=== PATIENT | male | born 1945 | race Caucasian/White ===

== ENCOUNTER 2016-05-23 05:49 | Day surgery (SDC) | payer MEDICARE, OTHER ==
[2016-05-22 10:46] LABS: BASOPHILS 0.2 % (0.0-2.0); EOSINOPHILS 0.9 % (0-7); HEMATOCRIT 33.6 % (42.0-54.0); HEMOGLOBIN 10.8 g/dL (13.5-17.5); IMMATURE GRANULOCYTES 0.6 % (0-5); LYMPHOCYTES 20.4 % (15-50); MCH 28.3 pg (26.0-34.0); MCHC 32.1 g/dL (31.0-37.0); MCV 88.2 fL (80.0-100.0); MONOCYTES 6.8 % (2-11); NEUTROPHILS 71.1 % (40-80); PLATELET COUNT 177 10x3/uL (130-400); RBC 3.81 10x6/uL (4.20-6.10); WBC 6.6 10x3/uL (4.8-10.8)
[2016-05-22 11:18] LABS: ANION GAP 12.8 mmol/L (8-16); APTT 28.2 SECONDS (22.8-39.4); CALCIUM 8.7 mg/dL (8.5-10.1); CARBON DIOXIDE 26.3 mmol/L (21.0-32.0); CREATININE - SERUM 1.5 mg/dL (0.6-1.3); INR 0.97 (0.85-1.17); POTASSIUM - SERUM 5.1 mmol/L (3.5-5.1); PROTIME 12.7 SECONDS (11.6-15.0)
[~2016-05-23] VITALS: Ht 180.3 cm; Wt 99.8 kg
[2016-05-23 05:48] VITALS: BP 101/56; Ht 180.3 cm; Wt 99.8 kg
[~2016-05-23 05:49] MED LIST: ECOTRIN325 MG PO; FLOMAX0.4 MG PO; HYDROCODONE-APA1 TAB PO; HYZAAR 100-25 T1 TAB PO; LOPRESSOR25 MG PO; PLAQUENIL200 MG PO; PREDNISONE5 MG PO; [UNRECOGNIZED DRUG - OTHER] PO
--- NOTE | 2016-05-23 08:41 | NUR ---
0835-RECEIVED PT FROM PACU AWAKE AND ALERT VSS NO DISTRESS NOTED. PT LEFT FOOT BANDAGE CDI WITHOUT ANY DRAINAGE NOTED. FOOT IS NUMB BRISK CAP REFILL. AT BEDSIDE WILL CONTINUE TO MONITOR
--- NOTE | 2016-05-23 09:50 | NUR ---
0945--PT VOIDS WITHOUT DIFFICULTY, IV DC'D. PT UP TO DRESS AT THIS TIME. HOLLY GONZALEZ
--- NOTE | 2016-05-23 10:03 | NUR ---
0955--DISCHARGE INSTRUCTIONS GIVEN, PT VERBALIZES UNDERSTANDING. PT OFF UNIT VIA BERTO. HOLLY GONZALEZ
--- NOTE | 2016-05-30 09:50 | OP ---
PATIENT NAME: ONDINA THORPE JR MEDICAL RECORD: [id number] :46 LOCATION:[facility] ADMISSION DATE: SURGEON: CIRA BRAY DPM DATE OF OPERATION: 05/23/2016 PREOPERATIVE DIAGNOSIS: Arthritis, left first metatarsophalangeal joint. 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 PROCEDURE: First MPJ fusion, left foot. ANESTHESIA: Local with IV sedation utilizing lidocaine and Marcaine plain, approximately 18 cc total 1:1 mix of lidocaine and Marcaine plain around the first ray. HEMOSTASIS: Left thigh tourniquet at 350 mmHg. PREOPERATIVE DETAILS: The patient was taken to the OR and placed on the operating table in supine position. This was followed by induction of general anesthesia and infiltration of local anesthetic. The left extremity was then prepped and draped in usual aseptic technique followed by examination of extremity and inflation of tourniquet. A 15 blade was used to create an incision on the dorsal aspect of the first ray extending to the base of proximal phalanx of the hallux. The incision was deepened down through subcutaneous tissue being sure to avoid all vital structures. A linear capsular incision was made and the head of the first metatarsal and base of proximal phalanx was then delivered. A K-wire was driven in the first metatarsal head and a cone reamer was used to remove the cartilaginous surface, rongeur was used to remove all ectopic bone and residual ____. A K-wire was then removed. The K-wire was placed in the proximal phalanx and the cone reamer was used to remove the cartilaginous surface of the proximal phalanx. The K-wire was removed. At this time, a 5-hole plate, 1 hole being across the fusion site was placed over the first MPJ. Following plate and screw placement, there was noted to be excellent rigid internal fixation as well as excellent alignment of the first ray and hallux. The wound was flushed. The capsule was repaired with 2-0 Vicryl. The subcutaneous tissue with 4-0 Rapide and the skin was closed with 4-0 Rapide in a subcuticular technique followed by Dermabond, Adaptic, 4 x 4 and Conform were used to dress the wound followed by application of a modified Borges compression dressing. Tourniquet was deflated. POSTOPERATIVE DETAILS: The patient tolerated the procedure well and left the OR with vital signs stable and vascular status at preoperative levels. The patient was transported to recovery per anesthesia in stable condition. TRANSINT:[id number] Voice Confirmation ID: [id number] DOCUMENT ID: [id number] OPERATIVE REPORT [id number] ONDINA THORPE JR, MCKAY DPM at 0950 CC: [id number] DICTATION DATE: 05/23/16 0757 QUALITY CONTROL CHEMIST: 05/23/16 0846 [facility] 05/23/16 [id number] [place] [address]
== END 2016-05-23 09:55 | disposition home or self-care (01) ==
LOC: D.OPS 05:49 → D.PAN 07:30 → D.OPS 07:30
PROVIDERS: Anesthesiology
DX: M13.872 Other specified arthritis, left ankle and foot (principal); M1A.0721 Idiopathic chronic gout, left ankle and foot, with tophus (tophi)

== ENCOUNTER 2016-10-16 06:50 | Day surgery (SDC) | payer MEDICARE, OTHER ==
[~2016-10-16] VITALS: Ht 180.3 cm; Wt 99.8 kg
--- NOTE | ~2016-10-16 | OP ---
PATIENT NAME: ONDINA THORPE JR MEDICAL RECORD: [id number] :47 LOCATION:D[facility] ADMISSION DATE: SURGEON: KAILA DONAHUE MD DATE OF OPERATION: 10/16/2016 PREOPERATIVE DIAGNOSIS: Cecal polyp, large. POSTOPERATIVE DIAGNOSES: Cecal polyp, large; with marginal prep. PROCEDURES: 1. Total colonoscopy to cecum. 2. Polypectomy utilizing the argon plasma manager bridge. 3. Epinephrine injection at the base of the polyp to prevent postoperative bleeding. 4. Endoscopic tattooing of the polyp for identification in the future. SURGEON: Kaila Donahue MD ACTIVITIES CONCIERGE: None. BLOOD LOSS: Minimal. ANESTHESIA: General. COMPLICATIONS: None. The risks, possible complications, and alternatives to the procedure were explained to the patient. He elects to proceed. The discussion specifically included, but was not limited to, bleeding requiring emergency reoperation, infection, intestinal injury as well as perforation. OPERATIVE COURSE: The patient was conveyed to the operating room electively on 10/16/2016. General anesthesia was induced by the anesthesia staff. The patient was placed in the Moralez position. A digital rectal examination was performed. Post-prostatectomy changes were noted. The colonoscope was inserted through the anus. The prep was marginal. I was able to irrigate and aspirate extensively in the cecum. I identified the polyp. Multiple cold endoscopic biopsies were obtained over the polyp, which was on a fold. It was just cephalad to the ileocecal valve and across from it. Some hot biopsy forceps polypectomy techniques were performed as well. There was some bleeding. I advanced a sclerotherapy needle. I injected epinephrine at the base of the polyp for hemostasis. Further cold endoscopic biopsies were performed. I then utilize the argon plasma manager bridge with the right colon setting in the forced mode in order to ablate the remaining polypoid tissue. I then advanced sclerotherapy needle. A 6 cc of Kecia ink were injected submucosally as a tattoo for identification in the future. The sclerotherapy needle was removed. The endoscope was withdrawn under direct vision. I irrigated and aspirated extensively. I dragged the folds. The pullback was greater than a 14-minute pullback. The anastomosis looked fine. A retroflexed view was obtained in the rectum. I then unretroflexed the scope and removed it under direct vision. I will see the patient back in my office in 2-3 weeks. I will recommend another colonoscopy with argon plasma manager bridge in 1 year. TRANSINT:[id number] Voice Confirmation ID: [id number] DOCUMENT ID: [id number] OPERATIVE REPORT [id number] ONDINA THORPE JR, ROBERT MD CC: LENI VELASQUEZ MD and VONNIE PARKER [id number] DICTATION DATE: 10/16/16 1318 LICENSED NURSING ASSISTANT: 10/16/161951 [facility] 10/16/16 [address] [place] [id number]
[2016-10-16 07:42] LABS: BASOPHILS 0.1 % (0-2); HEMOGLOBIN 11.1 g/dL (13.5-17.5); IMMATURE GRANULOCYTES 0.4 % (0-5); LYMPHOCYTES 18.3 % (15-50); MCH 29.1 pg (26.0-34.0); MCHC 32.6 g/dL (31.0-37.0); MEAN PLATELET VOLUME 9.7 fL (7.4-10.4); MONOCYTES 9.4 % (2-11); NEUTROPHILS 70.8 % (40-80); RBC 3.82 10x6/uL (4.20-6.10); RDW 14.5 % (11.5-14.5); WBC 6.8 10x3/uL (4.8-10.8)
[2016-10-16 07:55] LABS: PLATELET COUNT 140 10x3/uL (130-400)
[2016-10-16 07:59] LABS: ANION GAP 15.6 mmol/L (8-16); CARBON DIOXIDE 25.6 mmol/L (21.0-32.0); CREATININE - SERUM 1.7 mg/dL (0.6-1.3); POTASSIUM - SERUM 4.2 mmol/L (3.5-5.1)
[2016-10-16 08:08] LABS: INR 1.04 (0.85-1.17); PROTIME 13.5 SECONDS (11.6-15.0)
[2016-10-16 08:09] LABS: APTT 28.4 SECONDS (22.8-39.4)
[2016-10-16 08:16] VITALS: BP 115/62; Ht 180.3 cm; Wt 99.8 kg
--- NOTE | 2016-10-16 12:57 | NUR ---
DR DONAHUE CONSULTED ABOUT THE PATIENTS PAIN. DR DONAHUE NOTED THIS PROCEEDURE IS NORMALLY NOT ASSOCIATED WITH A LOT OF PAIN.
--- NOTE | 2016-10-16 15:32 | NUR ---
1330 PORTABLE CHEST XRAY ORDERED. Anurag GONZALEZ R.N.
--- NOTE | 2016-10-16 15:36 | NUR ---
6709 DRESSED. GIVEN DISCHARGE INFORMATION INCLUDING: MED REC., SHEET LISTING NSAIDS TO AVOID, RTC APPT., & MC D/C INSTRUCTIONS. PT VOICED UNDERSTANDING. TO PRIVATE CAR PER WHEELCHAIR BY VOLUNTEER. HOME WITH MRS. PETIT. Anurag GONZALEZ R.N.
== END 2016-10-16 14:45 | disposition home or self-care (01) ==
LOC: D.OPS 06:50 → D.PAN 09:15 → D.OPS 10:15 → D.PAN 10:15 → D.OPS 11:00
PROVIDERS: Anesthesiology
DX: D12.0 Benign neoplasm of cecum (principal); K64.9 Unspecified hemorrhoids; I10 Essential (primary) hypertension; G47.30 Sleep apnea, unspecified; Z01.812 Encounter for preprocedural laboratory examination

== ENCOUNTER 2016-10-16 23:53 | Emergency (ER) | payer MEDICARE, OTHER ==
[2016-10-16 08:16] VITALS: BMI 30.7
[2016-10-17 02:02] LABS: APPEARANCE CLEAR (CLEAR); BILIRUBIN NEGATIVE (NEGATIVE); COLOR YELLOW (YELLOW); GLUCOSE NEGATIVE (NEGATIVE); KETONE NEGATIVE (NEGATIVE); LEUKOCYTE ESTERASE NEGATIVE (NEGATIVE); NITRITE NEGATIVE (NEGATIVE); PROTEIN NEGATIVE (NEGATIVE); SPECIFIC GRAVITY 1.015 (1.005-1.020); UROBILINOGEN NORMAL (NORMAL)
[2016-10-17 02:34] LABS: BASOPHILS 0 % (0-2); EOSINOPHILS 0.2 % (0-7); HEMATOCRIT 32.2 % (42.0-54.0); HEMOGLOBIN 10.5 g/dL (13.5-17.5); IMMATURE GRANULOCYTES 0.2 % (0-5); LYMPHOCYTES 2.4 % (15-50); MCH 28.9 pg (26.0-34.0); MCHC 32.6 g/dL (31.0-37.0); MCV 88.7 fL (80.0-100.0); MEAN PLATELET VOLUME 9.1 fL (7.4-10.4); MONOCYTES 9.5 % (2-11); NEUTROPHILS 87.7 % (40-80); PLATELET COUNT 116 10x3/uL (130-400); RBC 3.63 10x6/uL (4.20-6.10); RDW 14.4 % (11.5-14.5)
[2016-10-17 02:37] LABS: WBC 9.4 10x3/uL (4.8-10.8)
[2016-10-17 02:41] LABS: ANION GAP 12.2 mmol/L (8-16); CALCIUM 8.3 mg/dL (8.5-10.1); CARBON DIOXIDE 25.3 mmol/L (21.0-32.0); CREATININE - SERUM 1.9 mg/dL (0.6-1.3)
[2016-10-17 02:42] LABS: POTASSIUM - SERUM 3.5 mmol/L (3.5-5.1)
== END 2016-10-17 03:46 | disposition home or self-care (01) ==
LOC: D.ER 23:53
PROVIDERS: Emergency Medicine
DX: R50.82 Postprocedural fever (principal); Z85.46 Personal history of malignant neoplasm of prostate; Z85.828 Personal history of other malignant neoplasm of skin; N18.3 Chronic kidney disease, stage 3 (moderate)

== ENCOUNTER 2017-11-06 05:24 | Day surgery (SDC) | payer MEDICARE, OTHER ==
[~2017-11-06] VITALS: Ht 180.3 cm; Wt 99.8 kg
--- NOTE | ~2017-11-06 | OP ---
PATIENT NAME: ONDINA THORPE JR MEDICAL RECORD: [id number] :47 [facility] ADMISSION DATE: SURGEON: KAILA DONAHUE MD DATE OF OPERATION: 11/06/2017 PREOPERATIVE DIAGNOSES: History of a complex cecal polyp, a tubulovillous adenoma. POSTOPERATIVE DIAGNOSES: History of a complex cecal polyp, a tubulovillous adenoma with significant regrowth of the polyp as well as a possible secondary polyp on the superior lip of the ileocecal valve. PROCEDURES: 1. Total colonoscopy to cecum. 2. Endoscopic mucosal resection of the 3-cm sessile irregular polyp of the cecum right across from the ileocecal valve. 3. Hot biopsy forceps polypectomies of the superior lip of the ileocecal valve where it appeared that there may be some polypoid tissue. 4. Placement of 7 endoscopic clips at the site of the primary polypectomy site for hemostasis as well as to reinforce this area to prevent a perforation. The patient was seen in the holding area. The risks, possible complications, and alternatives to the procedure were explained to the patient. He elects to proceed. OPERATIVE COURSE: The patient was conveyed to the operating room electively on 11/06/2017. General anesthesia was induced by the anesthesia staff. The patient was placed in the Moralez position. A digital rectal examination was performed. Post-prostatectomy changes were noted. A colonoscope was inserted through the anus. It was easily advanced to the cecum. The prep was marginal. I irrigated and aspirated extensively in the cecum. I noted an irregularity to the superior lip of the ileocecal valve and on narrow band imaging, it appeared that there could be some polypoid tissue there. Multiple hot biopsy forceps polypectomies were performed. I intubated the ileum, which appeared normal. I then withdrew and identified the recurrent large polyp across from the ileocecal valve. The tattoo was still present. I advanced the sclerotherapy needle and in 4 quadrants, a submucosal injection of Eleview was used to create a pillow. There was a good lift of the polyp away from the colonic wall. I advanced a snare. Utilizing a piecemeal snare polypectomy, I performed the endoscopic mucosal resection. Some potential residual polypoid tissue was ablated utilizing the argon plasma rejogger. Because I had to go fairly deep to get the polyp out and wanted to reinforce the area, also there was some bleeding present, I wanted to place some clips to reinforce the area as well as to cause the bleeding to cease. A row of 7 endoscopic clips were applied. I then advanced an endoscopic retrieval net. I grabbed the portion of the polyp that had been removed utilizing a piecemeal polypectomy technique during the endoscopic mucosal resection. I grasped these in the endoscopic retrieval net and withdrew them out through the anus. The patient was then extubated and conveyed to post-anesthesia care unit where he was in stable condition. I will plan to see him in the office in 2-3 weeks. I will plan for his next colonoscopy to take place likely in the GI lab with the argon plasma rejogger, in 1 year. OPERATIVE REPORT [id number] ONDINA THORPE TRANSINT:[id number] Voice Confirmation ID: [id number] DOCUMENT ID: [id number] KAILA DONAHUE MD CC: CAITLIN STRAUSS IGBODIKI, OYIDIE, KAUR, RATINDER MD, LENI VELASQUEZ [id number], VONNIE DICTATION DATE: 11/06/17 0954 AUTO TUNE UP MECHANIC: 11/06/17 1051 [facility] 11/06/17 [id number] [place] [address]
[2017-11-06 05:44] LABS: HEMATOCRIT 38.6 % (42.0-54.0); HEMOGLOBIN 13.1 g/dL (13.5-17.5); MCH 30.7 pg (26.0-34.0); MCHC 33.9 g/dL (31.0-37.0); MCV 90.4 fL (80.0-100.0); MEAN PLATELET VOLUME 9.7 fL (7.4-10.4); RBC 4.27 10x6/uL (4.20-6.10); RDW 14.7 % (11.5-14.5); WBC 7.7 10x3/uL (4.8-10.8)
[2017-11-06 06:09] LABS: ANION GAP 18.4 mmol/L (8-16); CALCIUM 8.8 mg/dL (8.5-10.1); CREATININE - SERUM 1.8 mg/dL (0.6-1.3); POTASSIUM - SERUM 3.4 mmol/L (3.5-5.1)
[2017-11-06 06:51] VITALS: BP 97/69; BMI 30.7
[2017-11-06 07:04] VITALS: BP 97/69; Ht 180.3 cm; Wt 99.8 kg
== END 2017-11-06 11:50 | disposition home or self-care (01) ==
LOC: D.OPS 05:24 → D.PAN 09:00 → D.OPS 09:00
PROVIDERS: Anesthesiology
DX: D12.0 Benign neoplasm of cecum (principal); K63.5 Polyp of colon; Z01.812 Encounter for preprocedural laboratory examination; Z86.010 Personal history of colon polyps

== ENCOUNTER 2018-10-28 06:23 | Day surgery (SDC) | payer MEDICARE, OTHER ==
[~2018-10-28] VITALS: Ht 180.3 cm; Wt 100.0 kg
[2018-10-28 06:50] LABS: HEMOGLOBIN 12.3 g/dL (13.5-17.5); MCH 28.8 pg (26.0-34.0); MCHC 33.2 g/dL (31.0-37.0); MCV 86.7 fL (80.0-100.0); MEAN PLATELET VOLUME 9.3 fL (7.4-10.4); RBC 4.27 10x6/uL (4.20-6.10); RDW 14.1 % (11.5-14.5); WBC 5.9 10x3/uL (4.8-10.8)
[2018-10-28] MEDS ORDERED: PERCOCET 10-321 EAC1 PO (08:04)
[2018-10-28] MEDS ORDERED: BISOPROLOL FUMAR5 MG PO (08:07)
[2018-10-28 08:10] VITALS: BP 126/68; Ht 180.3 cm; Wt 100.0 kg
--- NOTE | 2018-10-28 10:02 | NUR ---
PATIENT TOLERATING MEAL. MV
--- NOTE | 2018-11-01 11:08 | HP ---
PATIENT: ONDINA THORPE JR MEDICAL RECORD: [id number] ACCOUNT: [id number] LOCATION:[facility] : 47 ADMISSION DATE: 10/28/18 PCP: VONNIE PARKER MD HISTORY AND PHYSICAL EXAMINATION CHIEF COMPLAINT: 1. History of ileocecal valve polyp. 2. History of a cecal polyp, which was a tubulovillous adenoma. HISTORY OF PRESENT ILLNESS: Last year at about this time, the patient underwent an endoscopic mucosal resection of a 3 cm sessile irregular polyp of the cecum, right across from the ileocecal valve, also hot biopsy forceps polypectomies of the superior lip of the ileocecal valve where there appeared to be some polypoid tissue. He did have history of a complex cecal polyp, which was a tubulovillous adenoma and I felt that there was significant regrowth of the polyp. I placed some endoscopic clips because I had to go kind of deep during the endoscopic mucosal resection and need to reinforce the area. HOME MEDICATIONS: Please see the nursing list. The patient is not on any blood thinners. ALLERGIES: GENTAMICIN AND SULFA. SOCIAL HISTORY: Nonsmoker. PAST MEDICAL AND SURGICAL HISTORY: Asthma, COPD, sleep apnea on CPAP, history of heart rhythm problems, history of chronic kidney disease, history of kidney stones, history of rheumatoid arthritis. PHYSICAL EXAMINATION: GENERAL: The patient does not appear acutely ill. He does not appear chronically ill. VITAL SIGNS: Reviewed. EARS: External ears appear normal. EYES: Extraocular movements are intact. NECK: Trachea is midline. CHEST: No intercostal retractions. PULMONARY: Nonlabored, no stridor. IMPRESSION: History of complex right-sided colon polyps. PLAN: Colonoscopy, possible endoscopic mucosal resection, possible treatment with the argon plasma appeals manager, possible placement of endoscopic clips. TRANSINT:[id number] Voice Confirmation ID: [id number] DOCUMENT ID: [id number] HISTORY AND PHYSICAL [id number] ONDINA THORPE JR, ROBERT MD at 1108 CC: CAITLIN STRAUSS KETCHER, BRENDA and VONNIE PARKER MD [id number] DICTATION DATE: 10/28/18 0855 GRILL ATTENDANT: 10/28/18 1103 [facility] 10/28/18 [facility] [address] [place] [address]
--- NOTE | 2018-11-01 11:08 | OP ---
PATIENT NAME: ONDINA THORPE JR MEDICAL RECORD: [id number] :47 LOCATION:[facility] ADMISSION DATE: SURGEON: KAILA DONAHUE MD DATE OF OPERATION: 10/28/2018 PREOPERATIVE DIAGNOSIS: History of complex right-sided colon polyps. POSTOPERATIVE DIAGNOSES: 1. History of complex right-sided colon polyps with no evidence of regrowth of these complex polyps. 2. A total of 6 sessile polyps ranging in size from 5 mm to 1.2 cm. 3. Questionable polyp involving the superior lip of the ileocecal valve. PROCEDURES: 1. Total colonoscopy to cecum. 2. Hot biopsy forceps polypectomies times 7. SURGEON: Kaila Donahue MD SCALE MANAGER: None. BLOOD LOSS: Minimal. ANESTHESIA: IV sedation. COMPLICATIONS: None. The risks, possible complications, and alternatives to the procedure were explained to the patient. He elects to proceed. The discussion specifically included, but was not limited to, bleeding requiring emergency reoperation, infection, endoscopic perforation. ENDOSCOPIC COURSE: The patient was conveyed to the endoscopy suite electively on 10/28/2018. IV sedation was induced by the anesthesia staff. The patient was placed in the Moralez position. A digital rectal examination was performed. The prostate was symmetric, enlarged, and without nodules. A colonoscope was inserted through the anus. It was easily advanced to the cecum. Upon withdrawal, I irrigated and aspirated extensively. I biopsied the superior lip of the ileocecal valve after retroflexion in the cecum. I am not sure whether this ileocecal valve abnormality is a polyp or whether or just a variant of normal. Anyhow, I biopsied utilizing the hot biopsy forceps polypectomy technique. The prep was adequate. I slowly withdrew the endoscope. A combination of normal imaging and narrow band imaging were utilized. I irrigated and aspirated extensively. Seven hot biopsy forceps polypectomies were performed. The polyps were removed in their entireties. A retroflexed view was obtained in the rectum. I then unretroflexed the scope and removed it under direct vision. I will see the patient in my office in 2-3 weeks. I will plan for his next colonoscopy with the argon plasma kiln burner helper on standby to take place in 3 years. TRANSINT:[id number] Voice Confirmation ID: [id number] DOCUMENT ID: [id number] OPERATIVE REPORT [id number] ONDINA THORPE JR KAILA DONAHUE MD at 1108 CC: LENI VELASQUEZ and VONNIE PARKER MD [id number] DICTATION DATE: 10/28/1841 BOWL ATTENDANT: 10/28/18 1229 [facility] 10/28/18 [facility] [address] [place] [id number]
== END 2018-10-28 10:39 | disposition home or self-care (01) ==
LOC: D.OPS 06:23
PROVIDERS: Anesthesiology; ATTEND Surgery
DX: D12.0 Benign neoplasm of cecum (principal); Z01.812 Encounter for preprocedural laboratory examination